=== PATIENT | male | born 1980 | race Caucasian/White ===

== ENCOUNTER 2020-11-28 18:59 | Emergency (ER) | payer OTHER, SELFPAY ==
[2020-11-28 19:05] VITALS: BP 118/72; PULSE 79; RESP 20; TEMP 38.1; O2SAT 97
--- NOTE | 2020-11-28 19:12 | ED.FEVER ---
HPI - Fever General Chief Complaint: Fever Stated Complaint: chills Time Seen by Provider: 11/28/20 19:32 Source: patient Mode of arrival: wheelchair Limitations: no limitations History of Present Illness HPI Narrative: 40-year-old man with a history of spinal injury after which he does self urinary catheterization comes in today complaining of nausea, fatigue and fever starting this afternoon. Says he has some mild low abdominal pain as well. He has had no vomiting, diarrhea, rash, cough or cold symptoms or sore throat. He denies any sick contacts. States that he had a urinary tract infection about 2 years ago when he started catheterizing himself. MD elicited complaint: fever and malaise Onset (ago): hour(s) (5) Exacerbating factors: nothing Relieving factors: nothing Associated symptoms: chills, headache (09/20), abdominal pain and nausea Treatments prior to arrival fever: none Related Data Home Medications Medication Instructions Recorded Confirmed gabapentin 600 mg PO TID 11/28/20 11/28/20 montelukast 4 mg PO DAILY 11/28/20 11/28/20 oxycodone-acetaminophen 1.5 tablet PO PRN PRN 11/28/20 11/28/20 trazodone 100 mg PO DAILY 11/28/20 11/28/20 ziprasidone HCl 20 mg PO DAILY 11/28/20 11/28/20 Allergies Allergy/AdvReac Type Severity Reaction Status Date / Time No Known Allergies Allergy Verified 11/28/20 19:43 Review of Systems Constitutional: Constitutional: Reports chills, Reports fatigue and Reports fever(s) Eyes: Eyes: Denies change in vision and Denies photophobia ENT: Denies nasal congestion and Denies sore throat Cardiovascular: Cardiovascular: Denies chest pain and Denies radiating jaw, neck or arm pain Respiratory: Respiratory: Denies cough, Denies dyspnea and Denies wheezing Gastrointestinal: Gastrointestinal: Denies abdominal pain, Denies diarrhea, Reports nausea and Denies vomiting Genitourinary: Genitourinary: Denies hematuria and Denies urinary incontinence Musculoskeletal: Musculoskeletal: Denies arthralgias and Denies joint swelling Integumentary/Breasts: Skin/Breast: Denies pruritus, Denies erythema and Denies rash Neurologic: Denies vertigo, Denies dizziness and Denies syncope Endocrine: Endocrine: Denies polydipsia and Denies polyuria Hematologic/Lymphatic: Hematologic/Lymphatic: Denies easy bleeding and Denies easy bruising Allergic/Immunologic: Allergic/Immunologic: Denies lip swelling and Denies throat swelling PMFSH Past Medical History Medical History Bladder dysfunction Thoracic spine fracture Social History Social History Smoking status: Current every day smoker Alcohol intake: never Substance use: current Substance use type: marijuana Living arrangements: with family Exam Const: General: healthy appearing, no acute distress and alert Orientation/consciousness: patient oriented x3 Limitations: no limitations HENMT: Head: normal to inspection General nose exam: Normal nares present Face and sinus: normal facial exam Mouth: Yes moist mucous membranes Throat: posterior oropharynx normal Eyes: Conjunctivae: conjunctivae normal Pupils: Equal, round and reactive pupils present EOM: EOMs intact bilaterally Resp: Effort & Inspection: normal respiratory effort and not labored Auscultation: clear to auscultation bilaterally, no rales, no rhonchi and no wheezes Cardio: Rate: regular rate Rhythm: regular rhythm Heart sounds: no murmurs GI: GI Palp: Yes Soft to palpation, Yes Tenderness to palpation present (GI) ( mild suprapubic), No Guarding due to palpation present (GI), No Rigid due to palpation and No Palpable mass present Skin: General skin exam: normal color, no jaundice and no pallor Rashes: no rashes Neuro: General: patient oriented x3, moves all extremities, no focal motor deficits and CN's II-XI intact bilaterally Speech: normal speech
[2020-11-28 19:47] LABS: Add Urine Microscopic? NO; Appearance Urine Clear (Clear); Bilirubin Urine Negative (Negative); Blood Urine Negative (Negative); Color Urine Yellow (Yellow); Glucose Urine UA Negative (Negative); Ketones Urine Negative (Negative); Leukocyte Esterase Ur Negative (Negative); Nitrate Urine Negative (Negative); Protein Urine Negative (Negative); Specific Grav Ur 1.015 (1.010-1.020); Urobilinogen Urine 0.2 mg/dL (0.2-1.0)
[2020-11-28 20:18] LABS: Influenza Control Valid (Valid)
[2020-11-28 20:19] LABS: SARS-CoV-2 Ag Negative (Negative)
[2020-11-28] MEDS: OSELTAMIVIR PHOSPHATE 75 MG CAPSULE PO (21:10)
[2020-11-28 21:15] VITALS: BP 124/75; PULSE 84; RESP 20; TEMP 37.8; O2SAT 97
== END 2020-11-28 21:15 | disposition home or self-care (01) ==
PROVIDERS: Emergency Provider Emergency Medicine
DX: J11.1 Influenza due to unidentified influenza virus with other respiratory manifestations (principal); Z20.822 Contact with and (suspected) exposure to COVID-19
CPT/HCPCS: 81003; 87086; 87426; 87804; 99283; A9270; C9803